=== PATIENT | male | born 2000 | race Two or more races ===

== ENCOUNTER 2018-04-06 14:54 | Emergency (ER) | payer SELFPAY ==
[~2018-04-06] VITALS: Ht 175.3 cm; Wt 105.0 kg
[2018-04-06] MEDS ORDERED: IPRATROPIUM/ALBUTEROL 0.5-3(2.5)MG/3ML NEB HHN ONE (17:30)
[2018-04-06 18:34] VITALS: BP 122/76
== END 2018-04-06 18:34 | disposition home or self-care (01) ==
LOC: ER 14:54 → EDBD 14:54 → ER 18:34
DX: J45.909 Unspecified asthma, uncomplicated (principal)
CPT/HCPCS: 94640; 99283; J7620